=== PATIENT | female | born 1970 | race Caucasian/White ===

== ENCOUNTER 2020-06-24 16:08 | Emergency (ER) | payer OTHER ==
[~2020-06-24] VITALS: Ht 165.1 cm; Wt 158.8 kg
[2020-06-24 16:28] VITALS: BP 172/67
--- NOTE | 2020-06-24 16:41 | NUR ---
PT AMB TO BED 2.
--- NOTE | 2020-06-24 17:10 | NUR ---
C/O SUBJECTIVE FEVER, BODY ACHES X 2 DAYS. TEMP 97.9, BP 172/67 AT THIS TIME. BLOOD SUGAR 81 AT THIS TIME.PT AOX4 , AFIBRILE , AMBULATORY WITH STEADY GAIT , SCE , CBS , ROUND SOFT ABDOMEN. MED HX: CHF,DM,HTN, HLD
--- NOTE | 2020-06-24 17:13 | NUR ---
LEILANI VALDERRAMA AT BEDSIDE EVALUATING PT.
--- NOTE | 2020-06-24 17:32 | NUR ---
covid 19 swab done and sent to lab.
[2020-06-24 17:43] VITALS: BP 160/67
--- NOTE | 2020-06-24 17:44 | NUR ---
Patient discharged with v/s stable. Written and verbal after care instructions given and explained regarding covid 19. Patient alert, oriented and verbalized understanding of instructions. Carried with steady gait. All questions addressed prior to discharge. ID band removed. Patient advised to follow up with PMD. Rx of naprosyn given. Patient educated on indication of medication including possible reaction and side effects. Opportunity to ask questions provided and answered.
--- NOTE | 2020-06-26 08:39 | NUR ---
Received covid result from lab--Covid negative
== END 2020-06-24 17:44 | disposition home or self-care (01) ==
LOC: MED 16:08
DX: R50.9 Fever, unspecified (principal); Z20.828 Contact with and (suspected) exposure to other viral communicable diseases; M79.10 Myalgia, unspecified site; E11.9 Type 2 diabetes mellitus without complications; I10 Essential (primary) hypertension; Z90.49 Acquired absence of other specified parts of digestive tract; Z98.890 Other specified postprocedural states
CPT/HCPCS: 99283; U0003

== ENCOUNTER 2020-12-22 21:04 | Emergency (ER) | payer OTHER ==
[~2020-12-22] VITALS: Ht 165.1 cm; Wt 158.8 kg
[2020-12-22 21:07] VITALS: BP 119/80
--- NOTE | 2020-12-22 21:07 | NUR ---
to bed ambulatory
--- NOTE | 2020-12-22 21:22 | NUR ---
Pt c/o right side lower back pain x3 days and dysuria starting earlier today. States back pain is worse when sitting. Hx of HTN, CHF, DM, COPD. A/Ox4, steady gait.
[2020-12-22] MEDS ORDERED: KETOROLAC 60 MG/2 ML VIAL IM ONE (21:40)
[2020-12-22] MEDS ORDERED: ACET-8386 PO ×2 (21:48→22:06)
[2020-12-22] MEDS ORDERED: IBUP-2213 PO ×2 (21:48→22:06)
[2020-12-22 21:56] VITALS: BP 119/80
--- NOTE | 2020-12-22 21:56 | NUR ---
Patient discharged with v/s stable. Written and verbal after care instructions given and explained. Patient alert, oriented and verbalized understanding of instructions. Ambulatory with steady gait. All questions addressed prior to discharge. ID band removed. Patient advised to follow up with PMD. Rx of [place] and ibuprofen given. Patient educated on indication of medication including possible reaction and side effects. Opportunity to ask questions provided and answered.
== END 2020-12-22 21:56 | disposition home or self-care (01) ==
LOC: MED 21:04
DX: M54.5 Low back pain (principal); I11.9 Hypertensive heart disease without heart failure; J44.9 Chronic obstructive pulmonary disease, unspecified; E11.9 Type 2 diabetes mellitus without complications
CPT/HCPCS: 81002; 81025; 96372; 99283; J1885